=== PATIENT | male | born 1985 | race Caucasian/White ===

== ENCOUNTER 2021-01-16 21:39 | Emergency (ER) | payer MEDICARE, OTHER ==
[2021-01-16 21:48] VITALS: RESP 18; TEMP 97.8
--- NOTE | 2021-01-16 22:21 | ED ---
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 Patient was being turned by mother in bed and feeding tube had snagged and pulled out. Balloon is intact. Mother is requesting use of the same feeding tube as it is a JG tube. States she would have done it at home but she does not have a syringe.Patient has no other complaints at this time including shortness of breath, chest pain, abdominal pain, nausea or vomiting, headache, or visual changes. - Related Data Allergies Allergy/AdvReac Type Severity Reaction Status Date / Time cefdinir [From Omnicef] AdvReac Rash/Hives Verified 01/16/21 21:48 meloxicam [From Mobic] AdvReac Rash/Hives Verified 01/16/21 21:48 midodrine AdvReac Rash/Hives Verified 01/16/21 21:48 piperacillin [From Zosyn] AdvReac Rash/Hives Verified 01/16/21 21:48 tazobactam [From Zosyn] AdvReac Rash/Hives Verified 01/16/21 21:48 Review of Systems ROS Statement: Those systems with pertinent positive or pertinent negative responses have been documented in the HPI. ROS Other: All systems not noted in ROS Statement are negative. Past Medical History Past Medical History: COPD Additional Past Medical History / Comment(s): scolosis, mitochondrial myopathy, nonverbal History of Any Multi-Drug Resistant Organisms: C-DIFF Additional Past Surgical History / Comment(s): feeding tube placement Past Psychological History: No Psychological Hx Reported Smoking Status: Never smoker Past Alcohol Use History: None Reported Past Drug Use History: None Reported General Exam Limitations: language barrier, altered mental status, physical limitation General appearance: alert, in no apparent distress Head exam: Present: atraumatic Eye exam: Present: normal appearance, PERRL, EOMI. Absent: scleral icterus, conjunctival injection ENT exam: Present: normal exam, mucous membranes moist Neck exam: Present: normal inspection, full ROM. Absent: tenderness Respiratory exam: Present: normal lung sounds bilaterally. Absent: respiratory distress, wheezes Cardiovascular Exam: Present: regular rate, normal rhythm, normal heart sounds GI/Abdominal exam: Present: soft, normal bowel sounds, other (tube partially removed with balloon intact). Absent: distended Course Vital Signs 01/16/21 01/16/21 21:42 22:40 Temperature 97.8 F 97.8 F Pulse Rate 78 60 Respiratory 18 18 Rate Blood Pressure 106/63 93/60 O2 Sat by Pulse 97 97 Oximetry Medical Decision Making - Medical Decision Making Mother did not want to use one of our feeding tubes. Therefore as only the balloon had been removed and the rest of the tube was still in place the fluid was removed from the balloon and it was reinserted and the fluid was replaced. Pegogram was obtained which showed a PEG tube appearing in good position. Patient discharged home in stable condition. Disposition Clinical Impression: Feeding tube dysfunction Disposition: HOME SELF-CARE Condition: Good Instructions (If sedation given, give patient instructions): How to Use and Care for Your PEG Tube (ED) Is patient prescribed a controlled substance at d/c from ED?: No Referrals: Mary Ellen Bose DO [Primary Care Provider] - 1-2 days Time of Disposition: 22:39
--- NOTE | 2021-01-16 22:27 | XR ---
EXAMINATION TYPE: XR KUB DATE OF EXAM: 01/16/2021 COMPARISON: NONE HISTORY: PEG tube placement TECHNIQUE: Single view FINDINGS: 35 mL of Isovue was injected into the gastrostomy tube. Contrast flows into the body and fu ndus of the stomach. There is no extravasation. IMPRESSION: PEG tube appears in good position.
[2021-01-16 22:42] VITALS: BP 93/60; PULSE 60
== END 2021-01-16 23:30 | disposition home or self-care (01) ==
LOC: EEVIPCON 21:39 → EC 21:39
DX: K94.23 Gastrostomy malfunction (principal); J44.9 Chronic obstructive pulmonary disease, unspecified; Z88.1 Allergy status to other antibiotic agents; Z88.5 Allergy status to narcotic agent
CPT/HCPCS: 74018; 99283

== ENCOUNTER 2021-02-18 08:29 | Emergency (ER) | payer MEDICARE, OTHER ==
[2021-02-18 08:39] VITALS: RESP 18; TEMP 98.4
--- NOTE | 2021-02-18 09:23 | XR ---
EXAMINATION TYPE: XR KUB DATE OF EXAM: 02/18/2021 COMPARISON: 01/16/2021 HISTORY: PEG tube placement TECHNIQUE: One view abdominal series FINDINGS: Contrast is seen contained within the stomach. PEG tube noted. Scoliotic curvature of the spine is no loan and there is retained fecal debris throughout the rectum. Bowel gas pattern nonspecific. IMPRESSION: 1. Contrast remains contained within the stomach.
--- NOTE | 2021-02-18 09:39 | ED ---
General Adult HPI - General Chief complaint: Recheck/Abnormal Lab/Rx Stated complaint: Feeding tube dislodged Source: patient, EMS Mode of arrival: EMS - History of Present Illness Initial comments: Review 5-year-old male with past medical history of mitochondrial myopathy presents to emergency department after he dislodged his PEG tube. Mother states she woke up at 5 AM and changed him. She went back to sleep. When she awoke again the patient had pulled out his feeding tube and dislodged it. He did this once last month. 2 was not completely out. She did not have a syringe at home to release the balloon and therefore brought the patient in requesting assistance. Tube was placed out of [facility] by Dr. Cordoba. Patient has been tolerating his feeds up until today. Mother requesting that we use the same tube and place it back in. No other alleviating, presenting modifying factors - Related Data Previous Rx's Medication Instructions Recorded Petrolatum, White [Aquaphor] 1 applic TOPICAL TID #85 gm 02/18/21 Allergies Allergy/AdvReac Type Severity Reaction Status Date / Time cefdinir [From Omnicef] AdvReac Rash/Hives Verified 01/16/21 21:48 meloxicam [From Mobic] AdvReac Rash/Hives Verified 01/16/21 21:48 midodrine AdvReac Rash/Hives Verified 01/16/21 21:48 piperacillin [From Zosyn] AdvReac Rash/Hives Verified 01/16/21 21:48 tazobactam [From Zosyn] AdvReac Rash/Hives Verified 01/16/21 21:48 Review of Systems ROS Statement: Those systems with pertinent positive or pertinent negative responses have been documented in the HPI. ROS Other: All systems not noted in ROS Statement are negative. Past Medical History Past Medical History: COPD Additional Past Medical History / Comment(s): scolosis, mitochondrial myopathy, nonverbal History of Any Multi-Drug Resistant Organisms: C-DIFF Additional Past Surgical History / Comment(s): feeding tube placement Past Psychological History: No Psychological Hx Reported Smoking Status: Never smoker Past Alcohol Use History: None Reported Past Drug Use History: None Reported Course Vital Signs 02/18/21 02/18/21 08:33 09:59 Temperature 98.4 F Pulse Rate 90 78 Respiratory 18 18 Rate Blood Pressure 99/59 102/74 O2 Sat by Pulse 95 96 Oximetry Medical Decision Making - Medical Decision Making Upon arrival patient placed in room 17. Feeding tube is replaced. Balloon filled with 7 mL of normal saline. KUB performed which demonstrates no extravasation of the contrast. Patient will be discharged home at this time. Site around PEG tube is extremely red. Instructed to keep it dry. We will write a prescription for barrier cream. I'll up with her primary care doctor in 2-4 days. Return for any new or worsening symptoms Disposition Clinical Impression: Feeding tube dysfunction Disposition: HOME SELF-CARE Condition: Stable Instructions (If sedation given, give patient instructions): How to Use and Care for Your PEG Tube (ED) Additional Instructions: Please follow-up with your primary care doctor in 2-4 days. Keep the area near the site dry. I recommend you use a barrier cream near the site - coloplast hydrophilic wound dressing can be purchased on [employer]. Return to the emergency room for any new or worsening symptoms Prescriptions: Petrolatum, White [Aquaphor] 1 applic TOPICAL TID #85 gm Is patient prescribed a controlled substance at d/c from ED?: No Referrals: Mary Ellen Bose DO [Primary Care Provider] - 1-2 days Time of Disposition: 09:54
[2021-02-18 10:00] VITALS: BP 102/74; PULSE 78
== END 2021-02-18 09:59 | disposition home or self-care (01) ==
LOC: EC 08:29
DX: K94.23 Gastrostomy malfunction (principal); J44.9 Chronic obstructive pulmonary disease, unspecified; Z88.1 Allergy status to other antibiotic agents; Z88.5 Allergy status to narcotic agent
CPT/HCPCS: 99283; 43762; 74018; Q9967